=== PATIENT | male | born 1995 | race Caucasian/White ===

== ENCOUNTER 2021-11-19 09:10 | Emergency (ER) | payer MEDICAID, SELFPAY ==
[2021-11-19 09:25] VITALS: PULSE 95; RESP 16; O2SAT 97; BMI 34.8
--- NOTE | 2021-11-19 09:29 | ED_ITS ---
HPI - Back Pain/Injury General: Chief Complaint: Back Pain/Injury Stated Complaint: back pain Time Seen by Provider: 11/19/21 09:26 Source: patient Mode of arrival: ambulatory Limitations: no limitations History of Present Illness: 26-year-old male presents to the ER today for low back pain x5 days. Patient denies any known injury. He reports the pain is mostly in the middle of his low back. He reports worse with lying down. Denies any prior history of back injuries. Denies any loss of bowel or bladder control. Patient reports has been taking Tylenol and Motrin at home with minimal relief. Review of Systems General: Reports: 10 or more systems reviewed and unremarkable except in HPI and below Physical Exam Const: COMMON NORMALS: no acute distress, average body habitus, patient oriented x3, no limitations, healthy appearing, alert and well nourished Resp: COMMON NORMALS: normal respiratory effort EFFORT & INSPECTION: Yes a ble to speak in complete sentences Cardio: COMMON NORMALS: regular rate and regular rhythm RATE: regular rate RHYTHM: regular rhythm Back/Pelvis: COMMON NORMALS: thoracic and lumbar spine normal to inspection and thoraco-lumbar ROM normal OTHER: Patient has very minimal tenderness along the vertebral spine of the low back. There is mild paraspinal muscle tenderness otherwise unremarkable exam. Patient ambulates without difficulty. Patient moving around the bed without noted pain. Extremity: COMMON NORMALS: normal to inspection and full ROM Neuro: COMMON NORMALS: patient oriented x3 SENSORIUM/ORIENTATION: Yes alert Psych: COMMON NORMALS: mental status grossly normal, Normal thought process present and cooperative THOUGHT PROCESS: Normal thought process present Skin: COMMON NORMALS: no rashes or lesions noted and no wounds GENERAL SKIN EXAM: no rashes or lesions noted Course ED course: 26-year-old male presents to the ER today for 4 to 5 days of low back pain. Patient reports he has never had a back injury before. Denies doing anything last week that might of caused this. Patient reports pains in the middle of his low back and does not radiate anywhere else. Denies any loss of bowel or bladder control. Patient's been taking Tylenol and Motrin with minimal relief. We will do an exam today. I do not feel patient needs imaging given he had no known injury. Vital Signs: Vital signs: Vital Signs Pulse Rate 95 11/19/21 09:25 Respiratory Rate 16 11/19/21 09:25 Pulse Oximetry 97 11/19/21 09:25 Oxygen Delivery Me thod 11/19/21 09:25 MDM - Back Pain/Injury Medical Decision Making 26-year-old male presents to the ER today for 4 to 5 days of low back pain. Patient reports he has never had a back injury before. Denies doing anything last week that might of caused this. Patient reports pains in the middle of his low back and does not radiate anywhere else. Denies any loss of bowel or bladder control. Patient's been taking Tylenol and Motrin with minimal relief. We will do an exam today. I do not feel patient needs imaging given he had no known injury. Likely a low back strain based on history and physical exam. We will treat conservatively at this time. We will do Robaxin as a muscle relaxer and continue an anti-inflammatory. Patient given naproxen. Discussed with patient not to take ibuprofen at home. He can take Tylenol while at home if needed. Recommended warm, moist heat. Recommended topical muscle rub but do not use with heat. Stretching recommended. Follow-up in 7 to 10 days with a PCP if no improvement. Patient verbalized understanding and was in agreement with the treatment plan. Critical Care Time Critical Care Time: Critical Care Time: No Discharge Plan Discharge Patient Disposition: Home Clinical Impression: Low back strain Qualifiers: Encounter type: initial encounter Qualified Code(s): S39.012A - Strain of muscle, fascia and tendon of lower back, initial encounter Condition: Stable Prescriptions: New methocarbamol 750 mg tablet 750 mg PO Q8H Qty: 21 0RF naproxen 500 mg tablet 250 mg PO Q12H PRN (Reason: pain) Qty: 20 0RF Discharge Orders: Discharge ED (Routine); Ordered 11/19/21 Ordered By: Jessenia Moreno Discharge Diet: Usual diet Discharge Activity: Increase activity as tolerated Patient Instructions: Opioid Safety Activity Restrictions/Additional Instructions: Take naproxen and methocarbamol as prescribed. Okay to still take Tylenol at home as needed. Warm, moist heat recommended. Topical muscle rub recommended but do not use with heat. Stretching recommended. Follow-up with PCP in 10 to 14 days if no improvement. Coding Level of Care Code ED Door To Door Salesperson for Dereck Gordon
[2021-11-19 10:39] VITALS: PULSE 67; RESP 16; O2SAT 98
--- NOTE | 2021-11-20 13:52 | DCPLANNER ---
Addendum entered by Kate Lane 12/06/21 14:00: Patient had a follow up appointment scheduled with [facility] - patient did not attend appointment. Original Note: diversity manager had message to speak with patient about getting establish with primary care. diversity manager spoke with patient, he stated that he would like help in getting established with a primary care physician. diversity manager called [facility], spoke with Lyly, gave clinic patients information. A follow up appointment was scheduled for Sunday, December 05, 2021 at 1:[address] rPeston. diversity manager called patient with appointment information.
== END 2021-11-19 10:40 | disposition home or self-care (01) ==
PROVIDERS: Emergency Provider Physician Assistant
DX: S39.012A Strain of muscle, fascia and tendon of lower back, initial encounter (principal); X58.XXXA Exposure to other specified factors, initial encounter
CPT/HCPCS: 99283

== ENCOUNTER 2021-12-02 18:36 | Emergency (ER) | payer MEDICAID, SELFPAY ==
[2021-12-02 18:42] VITALS: BMI 41.5
--- NOTE | 2021-12-02 19:31 | XRR_ITS ---
PROCEDURE INFORMATION: Exam: XR Right Shoulder Exam date and time: 12/02/2021 8:44 PM Age: 26 years old Clinical indication: Pain; Shoulder; Right; Additional info: Pain in shoulder after lifting heavy object TECHNIQUE: Imaging protocol: Radiologic exam of the Right shoulder. Views: 2 or more views. COMPARISON: No relevant prior studies available. FINDINGS: Bones/joints: Normal. Soft tissues: Normal. XR/XR shoulder RT min 2V* [id number] IMPRESSION: No acute findings.
[2021-12-02 20:40] VITALS: BP 111/80; PULSE 93; RESP 18; TEMP 36.8; O2SAT 96
--- NOTE | 2021-12-02 20:56 | ED_ITS ---
HPI - Extremity Problem General: Chief complaint: Extremity Injury, Upper Stated complaint: RIGHT SHOULDER PAIN, N/V Time Seen by Provider: 12/02/21 19:32 History of Present Illness: Patient is a 26-year-old male comes to the ED with right shoulder pain. Injury occurred earlier today. Patient says a tree limb fell down and hit him on his right shoulder. He now has pain in right shoulder with abduction of right arm. He rates his pain currently a 4 out of 10. Denies any other injury or trauma. Associated symptoms: Deny chest pain, fever(s) or rash Review of Systems Const: Denies: fever(s), chills or fatigue Eyes: Denies: change in vision or eye discomfort ENMT: Denies: throat pain, odynophagia, nasal discharge or nasal congestion Card: Denies: chest pain, palpitations, edema, swelling of feet/ankles, dyspnea on exertion or orthopnea Resp: Denies: dyspnea, productive cough or non-productive cough GI: Denies: abdominal pain, nausea, vomiting, diarrhea, constipation or hematochezia : Denies: flank pain, difficulty urinating, dysuria or hematuria Musc: Reports: extremity pain (Right shoulder pain); Denies: neck pain, back pain or extremity swelling Skin/Breast: Denies: rash or new lesions Neuro: Denies: headache(s), numbness in extremities or weakness in extremities PFSH ED PFSH: Medical History No pertinent family history Surgical History No pertinent past surgical history Physical Exam Const: COMMON NORMALS: no acute distress, patient oriented x3, healthy appearing and alert GENERAL APPEARANCE: cooperative and comfortable HENMT: COMMON NORMALS: normocephalic HEAD & SCALP: normocephalic MOUTH: Normal oral and palatal mucosa present THROAT: posterior oropharynx normal and uvula midline Neck/C-Spine: COMMON NORMALS: supple GENERAL: Yes normal visual inspection Resp: COMMON NORMALS: normal respiratory effort, No retractions, No use of accessory muscles and clear to auscultation bilaterally AUSCULTATION: clear to auscultation bilaterally Cardio: COMMON NORMALS: regular rate, regular rhythm, S1 normal heart sound present, S2 normal heart sound present, No gallops present (Cardio), No clicks present (Cardio), No murmurs present (Cardio) and Peripheral pulses 2+ throughout RATE: regular rate RHYTHM: regular rhythm HEART SOUNDS: S1 normal heart sound present and S2 normal heart sound present PERIPHERAL PULSES: Peripheral pulses 2+ throughout GI: COMMON NORMALS: Normal to inspection, nondistended, normoactive bowel sounds present, Soft to palpation, non-tender and no masses PALPATION: Yes Soft to palpation : COMMON NORMALS: Yes no CVA tenderness BLADDER/KIDNEY EXAM: Yes no CVA tenderness Back/Pelvis: COMMON NORMALS: no CVA tenderness Extremity: COMMON NORMALS: normal to inspection NARRATIVE EXTREMITY EXAM: Right shoulder?tenderness to the anterior aspect of shoulder. No visible deformity ecchymosis or swelling seen. Superficial abrasion noted over right shoulder. Patient appears to have full range of motion. He was able to reposition his body on exam chair and use his right arm to help support his weight. Neurovascular tact distally. Neuro: COMMON NORMALS: patient oriented x3 SENSORIUM/ORIENTATION: Yes alert GAIT: Yes Normal gait present Skin: GENERAL SKIN EXAM: dry skin Course Vital Signs: Vital signs: Vital Signs Temperature 98.3 F 12/02/21 20:40 Pulse Rate 70 12/02/21 21:50 Respiratory Rate 18 12/02/21 21:50 Blood Pressure 135/61 12/02/21 21:50 Pulse Oximetry 98 12/02/21 21:50 Oxygen Delivery Me thod 12/02/21 20:40 MDM - Extremity (Nontraumatic) Medical Decision Making Patient is a 26-year-old male comes to the ED with right shoulder pain. Injury occurred earlier today. Patient says a tree limb fell down and hit him on his right shoulder. Vitals are stable. Patient appears in no acute distress or pain. Right shoulder?tenderness to the anterior aspect of shoulder. No visible deformity ecchymosis or swelling seen. Superficial abrasion noted over right shoulder. Patient appears to have full range of motion. He was able to reposition his body on exam chair and use his right arm to help support his weight. Neurovascular tact distally. X-ray of right shoulder showed no acute findings. Patient was given a dose of Toradol here in the ED and placed in a shoulder sling. He was told to use sling for the next 2 to 3 days to allow for healing. I have reminded him to remove right arm from sling multiple times throughout the next couple days and do some range of motion exercises to prevent frozen shoulder. Follow-up with PCP in a week for reevaluation. He was sent home with a prescription for ibuprofen 600 mg tablets for pain. Patient understood and agreed with plan. Lab Data Radiology Impressions Shoulder X-Ray 12/02/21 19:31 IMPRESSION: No acute findings. Discharge Plan Discharge Patient Disposition: Home Clinical Impression: Right shoulder pain Qualifiers: Chronicity: acute Qualified Code(s): M25.511 - Pain in right shoulder Condition: Stable Prescriptions: New ibuprofen 600 mg tablet 600 mg PO Q8H PRN (Reason: pain) Qty: 20 0RF No Action methocarbamol 750 mg tablet 750 mg PO Q8H Qty: 21 0RF naproxen 500 mg tablet 250 mg PO Q12H PRN (Reason: pain) Qty: 20 0RF Discharge Orders: Discharge ED (Routine); Ordered 12/02/21 Ordered By: Luis Anders Discharge Diet: Regular Discharge Activity: Increase activity as tolerated and Limit activity as instructed Activity Restrictions/Additional Instructions: Follow-up with medical provider as directed. Wear shoulder sling for the next 2 days but remember to remove arm from sling and do some range of motion exercises multiple times a day. Take medications as prescribed. Return to the ER or your medical provider if condition worsens. Please read and understand discharge instructions. Thank you for choosing [facility] for your healthcare needs today. Please realize this is an emergency room and that we are providing you with a medical screening exam and this may not be complete and all inclusive of all the testing and or work up that you may need to determine your ailment or severity of your illness. It is very important that you follow up as instructed or that you return to the Emergency Department should you have concerns or if your condition changes or worsens in any way. Coding Level of Care Code ED Public Policy Associate for Dereck Gordon Exam Comprehensive
[2021-12-02] MEDS: ketorolac 60 mg/2 mL INJ IM (21:17)
[2021-12-02 21:50] VITALS: BP 135/61; PULSE 70; RESP 18; O2SAT 98
== END 2021-12-02 21:50 | disposition home or self-care (01) ==
PROVIDERS: Emergency Provider Physician Assistant
DX: S40.211A Abrasion of right shoulder, initial encounter (principal); W22.8XXA Striking against or struck by other objects, initial encounter
CPT/HCPCS: 73030; 96372; 99284; J1885

== ENCOUNTER 2021-12-16 10:51 | Emergency (ER) | payer MEDICAID, SELFPAY ==
[2021-12-16 11:04] VITALS: BP 144/89; PULSE 83; RESP 18; TEMP 36.7; O2SAT 98; BMI 40.3
--- NOTE | 2021-12-16 11:09 | XRR_ITS ---
PROCEDURE INFORMATION: Exam: XR Right Knee Exam date and time: 12/16/2021 11:26 AM Age: 26 years old Clinical indication: Injury or trauma; Fall; Blunt trauma; Knee; Right; Additional info: Pain TECHNIQUE: Imaging protocol: Radiologic exam of the Right knee. Views: 3 views. COMPARISON: No relevant prior studies available. FINDINGS: Bones/joints: No knee joint effusion. No chondrocalcinosis is seen. No fracture, dislocation or subluxation. Soft tissues: The extensor mechanism is overall intact. No significant soft tissue swelling is appreciated. XR/XR knee RT 3V* [id number] IMPRESSION: No acute fracture is seen.
--- NOTE | 2021-12-16 11:13 | ED_ITS ---
HPI - General Adult General: Chief complaint: Extremity Injury, Lower Stated complaint: right knee pain Time Seen by Provider: 12/16/21 11:11 History of Present Illness: Patient is a 26-year-old male who presents the emergency room with complaints of right knee pain. Patient tells me that he was at work when a piece of wood fell on to his right knee 1 week and half ago. Patient then felt a pop sensation in the right knee. Since then, patient has noticed right-sided knee pain and right-sided knee and knocking. Patient denies any significant swelling. Patient still able to bear weight. Denies any other injuries. Since the incident, patient reports intermittent knee pain. Patient would like to get this checked out today. No other focal complaints at this time Onset:1 week and a half Duration: 9 days Location:home Severity: moderate Associated symptoms: Deny chest pain, dyspnea, nausea, rash, palpitations or vomiting Review of Systems Const: Denies: fever(s) or chills Eyes: Denies: change in vision ENMT: Denies: mouth pain Card: Denies: chest pain or palpitations Resp: Denies: dyspnea or non-productive cough GI: Denies: abdominal pain, nausea, vomiting or diarrhea : Denies: dysuria Musc: Reports: extremity pain (+R knee pain and locking) Skin/Breast: Denies: rash or new lesions Neuro: Denies: weakness in extremities Psych: Reports: other (Normal mood) Arnie/Lymph: Denies: easy bruising PFS ED PFSH: Medical History No pertinent family history Surgical History No pertinent past surgical history Social History (Updated 12/16/21 @ 12:18 by Ronda Barry MD) Smoking and tobacco status: current every day smoker Alcohol intake: never Substance/Drug Use: never Physical Exam Const: COMMON NORMALS: alert HENMT: COMMON NORMALS: atraumatic HEAD & SCALP: atraumatic MOUTH: moist mucous membranes not abnormal Eye: COMMON NORMALS: EOMs intact bilaterally and conjunctivae normal CONJUNCTIVA: Yes conjunctivae normal Neck/C-Spine: COMMON NORMALS: full ROM and supple Resp: COMMON NORMALS: normal respiratory effort and clear to auscultation bilaterally AUSCULTATION: clear to auscultation bilaterally Cardio: COMMON NORMALS: regular rate RATE: regular rate GI: COMMON NORMALS: Soft to palpation and non-tender PALPATION: Yes Soft to palpation Extremity: NARRATIVE EXTREMITY EXAM: + Range of motion of the right knee limited past 75 degrees. Patient cannot fully extend the knee. Neuro: SENSORIUM/ORIENTATION: Yes alert MOTOR EXAM: No Abnormal motor strength present and Other motor observations present (no focal motor deficits) Psych: COMMON NORMALS: speech normal SPEECH: Yes normal speech MOOD & AFFECT: Yes euthymic mood Course Vital Signs: Vital signs: Vital Signs Temperature 98.0 F 12/16/21 11:04 Pulse Rate 76 12/16/21 12:36 Respiratory Rate 17 12/16/21 12:36 Blood Pressure 144/89 12/16/21 11:04 Pulse Oximetry 97 12/16/21 12:36 Oxygen Delivery Me thod 12/16/21 11:04 MDM - General Adult Medical Decision Making 26-year-old male presenting to the emergency with complaints of 9 days of right knee pain. Patient has decreased range of motion of the right knee. The patella does not appear to be displaced. Neurovascular exam is intact in the right knee. X-ray is negative for any acute findings. Patient continues to be able to bear weight. I have given patient follow up with our pillowcase cleaner to be seen by our outpatient Orthopedics. Patient aware of a call from our pillowcase cleaner to schedule for appointment(s) and verbalizes understanding of the importance of following up. Rx: Tylenol and menthol PRN pain Disposition: Discharge. Patient counseled regarding diagnostic impression, treatment plan. Patient given ED strict return precautions to return for continuation, worsening, or development of new symptoms. Instructed to f/u w/ PCP and Orthopedics regarding symptoms today. Patient verbalized understanding. Lab Data Radiology Impressions Knee X-Ray 12/16/21 11:09 IMPRESSION: No acute fracture is seen. Imaging Data Other Imaging: Radiologist's impression: [address] [address] XRay Report Signed Patient: Isra Medina Unit #: [id number] : [id number] Age/Sex: 26 / M ADM Date: 12/16/21 Loc: ER Room/Bed: Attending Dr: Ordering Provider/Ordering MD: Ronda Barry MD Date of Service: 12/16/21 Procedure(s): XR knee RT 3V* [id number] Accession Number(s): [id number] Report Number: [id number] PROCEDURE INFORMATION: Exam: XR Right Knee Exam date and time: 12/16/2021 11:26 AM Age: 26 years old Clinical indication: Injury or trauma; Fall; Blunt trauma; Knee; Right; Additional info: Pain TECHNIQUE: Imaging protocol: Radiologic exam of the Right knee. Views: 3 views. COMPARISON: No relevant prior studies available. FINDINGS: Bones/joints: No knee joint effusion. No chondrocalcinosis is seen. No fracture, dislocation or subluxation. Soft tissues: The extensor mechanism is overall intact. No significant soft tissue swelling is appreciated. XR/XR knee RT 3V* [id number] IMPRESSION: No acute fracture is seen. ? Dictated By: Jaylen Galloway Signed By: Jaylen Galloway Signed Date/Time: 12/16/21 1304 DD/ 1126 Discharge Plan Discharge Patient Disposition: Home Clinical Impression: Acute knee pain Condition: Stable Prescriptions: New acetaminophen 500 mg tablet 500 mg PO Q6H PRN (Reason: pain) 5 Days Qty: 20 0RF Biofreeze (menthol) 5 % gel 1 ea topical BID PRN (Reason: pain) 10 Days Qty: 1 0RF No Action methocarbamol 750 mg tablet 750 mg PO Q8H Qty: 21 0RF naproxen 500 mg tablet 250 mg PO Q12H PRN (Reason: pain) Qty: 20 0RF ibuprofen 600 mg tablet 600 mg PO Q8H PRN (Reason: pain) Qty: 20 0RF Discharge Orders: Discharge ED (Routine); Ordered 12/16/21 Ordered By: Ronda Barry Discharge Diet: Advance as tolerated Discharge Activity: Increase activity as tolerated Patient Instructions: Pain Management Activity Restrictions/Additional Instructions: Come back if you have any new or concerning issues. Our pillowcase cleaner will have you follow-up with Orthopedics in the next few days for further assessment of your knee pain. You would be expected to have a phone call with our pillowcase cleaner who will put you on the schedule. You can expect a call from us in the next 2-3 days. If you don't hear from us, call us back in the emergency room at [phone]. Coding Level of Care Code ED Outside Energy Sales Representatives for Dereck Gordon Exam Comprehensive
[2021-12-16 12:36] VITALS: PULSE 76; RESP 17; O2SAT 97
== END 2021-12-16 12:37 | disposition home or self-care (01) ==
PROVIDERS: Emergency Provider Emergency Medicine
DX: M25.561 Pain in right knee (principal); F17.210 Nicotine dependence, cigarettes, uncomplicated
CPT/HCPCS: 73562; 99283

== ENCOUNTER 2021-12-17 18:30 | Emergency (ER) | payer MEDICAID, SELFPAY ==
[2021-12-17 18:32] VITALS: BP 146/94; PULSE 93; RESP 15; TEMP 36.8; O2SAT 100; BMI 39.7
--- NOTE | 2021-12-17 18:48 | W.ED.NAVMDI ---
HPI - Nausea/Vomiting/Diarrhea General: Chief complaint: Nausea/Vomiting/Diarrhea Stated complaint: N/V Time Seen by Provider: 12/17/21 18:34 Source: patient History of Present Illness: 26-year-old male with developmental delay. He presents with abdominal pain and vomiting he says. He says is been going on for the last 5 days or so. He says he has vomited 5 times today. He gives no clinical indication that he has vomited 5 times today. He does not appear in pain. He smiles on interview. He points to his right lower quadrant when he reports the location of his pain. He says he last took Tylenol for his pain. He also notes that he's been coughing and sneezing he denies significant fever. MD elicited complaint: nausea, vomiting, diarrhea and abdominal pain Pertinent past history: other Onset (ago): day(s) (5) Description of diarrhea: watery Associated nausea: Yes Associated abdominal pain: Yes Location of pain: RLQ Pain consistency: constant Severity: mild Quality: aching Exacerbating factors: none Relieving factors: none Associated symtoms: Reports cough and nausea; Denies altered mental status, chest pain, diaphoresis, decreased urine output, fevers/chills, headache(s) or short of breath Treatment prior to arrival: analgesics Review of Systems Const: Denies: fever(s) or diaphoresis ENMT: Denies: throat pain Card: Denies: chest pain Resp: Reports: productive cough; Denies: dyspnea GI: Reports: abdominal pain, nausea, vomiting and diarrhea; Denies: hematochezia Musc: Reports: back pain (Chronic) Neuro: Denies: headache(s) [facility] ED PFSH: Medical History No pertinent family history Surgical History No pertinent past surgical history Social History Smoking and tobacco status: current every day smoker Alcohol intake: never Physical Exam Const: EXAM LIMITATIONS: no altered mental status GENERAL APPEARANCE: cooperative; not ill appearing and not frail appearing ORIENTATION/CONSCIOUSNESS: Yes awake HENMT: COMMON NORMALS: normocephalic, atraumatic and Normal external nose present HEAD & SCALP: normocephalic and atraumatic FACE & SINUS: normal facial exam NOSE: Normal external nose present and Normal nares present Eye: COMMON NORMALS: Equal, round and reactive pupils present, EOMs intact bilaterally and no scleral icterus PUPIL: Yes Equal, round and reactive pupils present Neck/C-Spine: COMMON NORMALS: full ROM GENERAL: Yes trachea midline Chest: CHEST: Yes Symmetrical chest wall rise Resp: COMMON NORMALS: normal respiratory effort, No use of accessory muscles and clear to auscultation bilaterally AUSCULTATION: clear to auscultation bilaterally Cardio: COMMON NORMALS: regular rate and regular rhythm RATE: regular rate RHYTHM: regular rhythm GI: COMMON NORMALS: Normal to inspection, nondistended, normoactive bowel sounds present and Soft to palpation PALPATION: Yes Soft to palpation and Yes Tenderness to palpation present (GI) (By report. No objective indication) Details: RLQ : COMMON NORMALS: Yes no CVA tenderness BLADDER/KIDNEY EXAM: Yes no CVA tenderness Back/Pelvis: COMMON NORMALS: no CVA tenderness Extremity: COMMON NORMALS: normal to inspection Neuro: DL COMA SCALE: document GCS findings Dl coma scale eye opening: Spontaneous [place] coma scale verbal response: Orientated [place] coma scale motor response: Obey commands [place] coma scale total score: 15 Psych: COMMON NORMALS: cooperative Skin: COMMON NORMALS: no rashes or lesions noted GENERAL SKIN EXAM: no rashes or lesions noted Course Vital Signs: Vital signs: Vital Signs Temperature 98.3 F 12/17/21 18:32 Pulse Rate 91 12/17/21 20:59 Respiratory Rate 18 12/17/21 20:59 Blood Pressure 116/78 12/17/21 20:59 Pulse Oximetry 98 12/17/21 20:59 Oxygen Delivery Me thod 12/17/21 19:54 MDM - Nausea/Vomiting/Diarrhea Medical Decision Making 26-year-old male with a history of belly pain, vomiting, and diarrhea. He is also had some upper respiratory symptoms. His white blood cell count is 6. His BMP is normal. His CRP is 9. His COVID-19 antigen test is negative. He has not vomited here. He is afebrile. He gives no indication of being overly tender or ill on exam. His other vitals are normal. He will be allowed discharged with symptomatic treatment. Lab Data : 12/17/21 18:40 12/17/21 18:40 Laboratory Results WBC 6.0 10^3/uL (4.0-10.0) 12/17/21 18:40 RBC 4.59 10^6/uL (4.1-5.3) 12/17/21 18:40 Hgb 14.0 g/dL (11.7-16.6) 12/17/21 18:40 Hct 41.9 % (42.0-52.0) L 12/17/21 18:40 MCV 91.3 fl (80-94) 12/17/21 18:40 MCH 30.5 pg (28.0-34.0) 12/17/21 18:40 MCHC 33.4 g/dL (30.0-36.0) 12/17/21 18:40 RDW 13.2 % (12.1-15.1) 12/17/21 18:40 Plt Count 218 10^3/cmm (130-400) 12/17/21 18:40 MPV 11.2 fL (7.4-10.4) H 12/17/21 18:40 Neut % (Auto) 53.3 % 12/17/21 18:40 Lymph % (Auto) 27.8 % 12/17/21 18:40 [place] % (Auto) 16.2 % 12/17/21 18:40 Eos % (Auto) 2.0 % 12/17/21 18:40 Baso % (Auto) 0.5 % 12/17/21 18:40 Neut # (Auto) 3.22 10^3/uL (1.8-7.7) 12/17/21 18:40 Lymph # (Auto) 1.7 10^3/uL (0.8-4.8) 12/17/21 18:40 [place] # (Auto) 1.0 10^3/uL (0.2-0.9) H 12/17/21 18:40 Eos # (Auto) 0.1 10^3/uL (0.0-0.8) 12/17/21 18:40 Baso # (Auto) 0.0 10^3/uL (0.0-0.1) 12/17/21 18:40 Nucleated RBC % (auto) 0 % 12/17/21 18:40 Nucleated RBCs # 0.0 /100WBC 12/17/21 18:40 Sodium 137 mmol/L (136-145) 12/17/21 18:40 Potassium 4.3 mmol/L (3.5-5.1) 12/17/21 18:40 Chloride 98 mmol/L (98-107) 12/17/21 18:40 Carbon Dioxide 28 mmol/L (22-29) 12/17/21 18:40 Anion Gap 15.3 (5-19) 12/17/21 18:40 BUN 11 mg/dL (6-20) 12/17/21 18:40 Creatinine 0.8 mg/dL (0.7-1.2) 12/17/21 18:40 GFR Calculation 116.0 mL/min (90-130) 12/17/21 18:40 Glucose 98 mg/dL (65-115) 12/17/21 18:40 Calculated Osmolality 283 mOsm/kg (285-295) L 12/17/21 18:40 Calcium 9.4 mg/dL (8.5-10.5) 12/17/21 18:40 Total Bilirubin 0.3 mg/dL (0.15-1.2) 12/17/21 18:40 AST 23 U/L (0-40) 12/17/21 18:40 ALT 35 U/L (0-41) 12/17/21 18:40 Alkaline Phosphatase 120 U/L (40-130) 12/17/21 18:40 C-Reactive Protein 9.0 mg/L (0.0-4.9) H 12/17/21 18:40 Total Protein 7.2 g/dL (6.6-8.7) 12/17/21 18:40 Albumin 4.2 g/dL (3.5-5.2) 12/17/21 18:40 Globulin 3.0 g/dL (1.3-4.6) 12/17/21 18:40 Lipase 38 U/L (13-60) 12/17/21 18:40 Urine Color Yellow (Yellow) 12/17/21 19:07 Urine Appearance Clear (CLEAR) 12/17/21 19:07 Urine pH 5 (5-7) 12/17/21 19:07 Ur Specific [place] 1.020 (1.005-1.030) 12/17/21 19:07 Urine Protein Neg (Negative) 12/17/21 19:07 Urine Glucose (UA) Norm (Normal) 12/17/21 19:07 Urine Ketones Negative (Negative) 12/17/21 19:07 Urine Blood Neg (Negative) 12/17/21 19:07 Urine Nitrate Negative (Negative) 12/17/21 19:07 Urine Bilirubin Neg (Negative) 12/17/21 19:07 Urine Urobilinogen Neg mg/dL (Negative) 12/17/21 19:07 Ur Leukocyte Esterase Negative (Negative) 12/17/21 19:07 SARS-CoV-2 Ag (Rapid) negative (Negative) 12/17/21 19:50 Discharge Plan Discharge Patient Disposition: Home Clinical Impression: Gastroenteritis Condition: Stable Prescriptions: New ondansetron 4 mg film 4 mg PO DAILY PRN (Reason: nausea and vomiting) Qty: 10 0RF No Action methocarbamol 750 mg tablet 750 mg PO Q8H Qty: 21 0RF naproxen 500 mg tablet 250 mg PO Q12H PRN (Reason: pain) Qty: 20 0RF ibuprofen 600 mg tablet 600 mg PO Q8H PRN (Reason: pain) Qty: 20 0RF acetaminophen 500 mg tablet 500 mg PO Q6H PRN (Reason: pain) 5 Days Qty: 20 0RF Biofreeze (menthol) 5 % gel 1 ea topical BID PRN (Reason: pain) 10 Days Qty: 1 0RF Discharge Orders: Discharge ED (Routine); Ordered 12/17/21 Ordered By: Keny Wharton Patient Instructions: Gastroenteritis (ED) Activity Restrictions/Additional Instructions: Return for persistent fever greater than 100, continuing to vomit liquids or medications despite treatment, worsening pain despite treatment other concerning symptoms. Follow a liquid diet for the next 24 hours, and take the nausea medication you were prescribed every 6 hours while awake scheduled for the next 24 hours, then as needed. You should consider stopping the naproxen, as it can irritate your stomach Coding Level of Care Code ED Fish Processing Supervisor for Dereck Fwd Exam Comprehensive
[2021-12-17 19:00] LABS: Basophils % 0.5 %; Eosinophils # 0.1 10^3/uL (0.0-0.8); Hematocrit 41.9 % (42.0-52.0); Lymphocytes # 1.7 10^3/uL (0.8-4.8); Lymphocytes % 27.8 %; Mean Corpuscular HGB Conc 33.4 g/dL (30.0-36.0); Mean Corpuscular Hemoglobin 30.5 pg (28.0-34.0); Mean Corpuscular Volume 91.3 fl (80-94); Mean Platelet Volume 11.2 fL (7.4-10.4); Monocytes % 16.2 %; Neutrophils # 3.22 10^3/uL (1.8-7.7); Neutrophils % 53.3 %; Nucleated Red Blood Cells % 0 %; Platelet Count 218 10^3/cmm (130-400); Red Blood Count 4.59 10^6/uL (4.1-5.3); Red Cell Distribution Width 13.2 % (12.1-15.1)
[2021-12-17] MEDS: ondansetron 2 mg/ML SDV 2 mL 4 MG IVP (19:02)
[2021-12-17] MEDS: sodium chloride 0.9% 1,000 ML 999 ML IV (19:02)
[2021-12-17] MEDS: ketorolac 30 mg/mL INJ 15 MG IVP (19:02)
[2021-12-17 19:11] VITALS: BP 146/94; PULSE 89; RESP 19; O2SAT 99
[2021-12-17 19:18] LABS: Add Urine Microscopic? NO; Charge for UA Resulting for Rev
[2021-12-17 19:27] LABS: Alanine Aminotransferase 35 U/L (0-41); Albumin Level 4.2 g/dL (3.5-5.2); Alkaline Phosphatase 120 U/L (40-130); Anion Gap 15.3 (5-19); Aspartate Amino Transferase 23 U/L (0-40); Blood Urea Nitrogen 11 mg/dL (6-20); Calcium 9.4 mg/dL (8.5-10.5); Carbon Dioxide 28 mmol/L (22-29); Chloride 98 mmol/L (98-107); Glucose 98 mg/dL (65-115); Lipase 38 U/L (13-60); Osmolality Calculated 283 mOsm/kg (285-295); Potassium 4.3 mmol/L (3.5-5.1); Sodium 137 mmol/L (136-145); Total Bilirubin 0.3 mg/dL (0.15-1.2); Total Protein 7.2 g/dL (6.6-8.7)
[2021-12-17 19:29] LABS: Bilirubin Urine Neg (Negative); Blood Urine Neg (Negative); Glucose Urine UA Norm (Normal); Ketones Urine Negative (Negative); Leukocyte Esterase Urine Negative (Negative); Nitrate Urine Negative (Negative); Protein Urine Neg (Negative); Urine Appearance Clear (CLEAR); Urine Color Yellow (Yellow); Urobilinogen Urine Neg (Negative); pH Urine 5 (5-7)
[2021-12-17 19:54] VITALS: BP 118/80; PULSE 91; RESP 18; O2SAT 98
[2021-12-17 20:13] LABS: SARS Covid-2 Antigen negative (Negative)
[2021-12-17 20:59] VITALS: BP 116/78; PULSE 91; RESP 18; O2SAT 98
== END 2021-12-17 21:02 | disposition home or self-care (01) ==
PROVIDERS: Emergency Provider Emergency Medicine
DX: K52.9 Noninfective gastroenteritis and colitis, unspecified (principal)
CPT/HCPCS: 80053; 81003; 83690; 85025; 86140; 87426; 96361; 96374; 96375; 99284; J1885; J2405; J7030

== ENCOUNTER 2021-12-23 19:47 | Emergency (ER) | payer MEDICAID, SELFPAY ==
--- NOTE | 2021-12-23 19:50 | XRR_ITS ---
PROCEDURE INFORMATION: Exam: XR Left Knee Exam date and time: 12/23/2021 7:56 PM Age: 26 years old Clinical indication: Injury or trauma; Other: Dropped tree on knee 5x days ago; Blunt trauma; Left TECHNIQUE: Imaging protocol: Radiologic exam of the Left knee. Views: 3 views. COMPARISON: No relevant prior studies available. FINDINGS: Bones/joints: Normal. Soft tissues: Normal. XR/XR knee LT 3V* [id number] IMPRESSION: No acute findings.
[2021-12-23 19:52] VITALS: BP 147/82; PULSE 108; RESP 18; TEMP 36.6; O2SAT 95
--- NOTE | 2021-12-23 20:08 | W.ED.EXTPRO ---
HPI - Extremity Problem General: Chief complaint: Extremity Injury, Lower Stated complaint: left knee pain Time Seen by Provider: 12/23/21 19:51 Source: patient Mode of arrival: ambulatory Limitations: no limitations History of Present Illness: 26-year-old male who states that he had a tree limb hit him in the left knee 5 days ago has had some slight pain since then. He denies any worsening improving factors. He is able to ambulate he is resting comfortably currently. Associated symptoms: Deny chest pain, fever(s) or rash Review of Systems Const: Denies: fever(s), chills, body aches or change in appetite Eyes: Denies: blurry vision or eye discomfort ENMT: Denies: throat pain or dental pain Card: Denies: chest pain Resp: Denies: dyspnea GI: Denies: abdominal pain, nausea, vomiting or diarrhea : Denies: dysuria Musc: Reports: extremity pain Skin/Breast: Denies: rash Neuro: Denies: headache(s) Psych: Denies: depression Arnie/Lymph: Denies: easy bruising All/Imm: Denies: urticaria PFSH ED PFSH: Medical History No pertinent family history Surgical History No pertinent past surgical history Social History Smoking and tobacco status: current every day smoker Alcohol intake: never Physical Exam Const: COMMON NORMALS: no acute distress and alert HENMT: COMMON NORMALS: normocephalic and atraumatic HEAD & SCALP: normocephalic and atraumatic Eye: COMMON NORMALS: conjunctivae normal CONJUNCTIVA: Yes conjunctivae normal Neck/C-Spine: COMMON NORMALS: full ROM Chest: COMMONS NORMALS: normal inspection of the chest Resp: COMMON NORMALS: normal respiratory effort Cardio: COMMON NORMALS: regular rhythm RHYTHM: regular rhythm GI: INSPECTION: Yes normal to inspection Extremity: COMMON NORMALS: normal to inspection NARRATIVE EXTREMITY EXAM: Slight tenderness to left knee no obvious deformity or bruising Neuro: SENSORIUM/ORIENTATION: Yes alert Psych: COMMON NORMALS: mental status grossly normal Skin: COMMON NORMALS: no rashes or lesions noted GENERAL SKIN EXAM: no rashes or lesions noted Course Vital Signs: Vital signs: Vital Signs Temperature 97.8 F 12/23/21 19:52 Pulse Rate 108 H 12/23/21 19:52 Respiratory Rate 18 12/23/21 19:52 Blood Pressure 147/82 12/23/21 19:52 Pulse Oximetry 95 12/23/21 19:52 Oxygen Delivery Me thod 12/23/21 19:52 MDM - Extremity (Nontraumatic) Medical Decision Making Patient presents with left knee pain likely contusion patient's x-ray here is negative he is able to ambulate he is stable for discharge. Discharge Plan Discharge Patient Disposition: Home Clinical Impression: Knee pain, left Qualifiers: Chronicity: acute Qualified Code(s): M25.562 - Pain in left knee Condition: Stable Prescriptions: No Action methocarbamol 750 mg tablet 750 mg PO Q8H Qty: 21 0RF naproxen 500 mg tablet 250 mg PO Q12H PRN (Reason: pain) Qty: 20 0RF ibuprofen 600 mg tablet 600 mg PO Q8H PRN (Reason: pain) Qty: 20 0RF Biofreeze (menthol) 5 % gel 1 ea topical BID PRN (Reason: pain) 10 Days Qty: 1 0RF ondansetron 4 mg film 4 mg PO DAILY PRN (Reason: nausea and vomiting) Qty: 10 0RF Discharge Orders: Discharge ED (Routine); Ordered 12/23/21 Ordered By: Mil Ford Discharge Diet: Advance as tolerated Discharge Activity: Resume usual activity Patient Instructions: Knee Pain (ED) Coding Level of Care Code ED Control Integration Engineer for Dereck Gordon
[2021-12-23] MEDS: naproxen 500 mg Tablet PO (20:13)
[2021-12-23 20:16] VITALS: BP 147/82; PULSE 108; RESP 18; TEMP 36.6; O2SAT 95
== END 2021-12-23 20:18 | disposition home or self-care (01) ==
PROVIDERS: Emergency Provider Emergency Medicine
DX: M25.562 Pain in left knee (principal); F17.210 Nicotine dependence, cigarettes, uncomplicated
CPT/HCPCS: 73562; 99283

== ENCOUNTER 2022-01-02 01:46 | Emergency (ER) | payer MEDICAID, SELFPAY ==
[2022-01-02 01:48] VITALS: BP 154/109; PULSE 91; RESP 18; TEMP 36.6; O2SAT 98; BMI 37.3
--- NOTE | 2022-01-02 01:54 | W.ED.EXTPRO ---
HPI - Extremity Problem General: Chief complaint: Extremity Injury, Lower Stated complaint: R Foot Pain Time Seen by Provider: 01/02/22 01:50 History of Present Illness: 26-year-old male patient comes in today with complaints of right foot pain. Patient appears nontoxic. Patient reports twisting foot. Patient reports that it seems to be more swollen and painful. Patient was seen yesterday for an old knee injury. EMS brought patient and they state that he is homeless at this time. Associated symptoms: Deny chest pain Review of Systems General: Reports: 10 or more systems reviewed and unremarkable except in HPI and below Card: Denies: chest pain Resp: Denies: dyspnea Musc: Reports: extremity pain PFSH ED PFSH: Medical History No pertinent family history Surgical History No pertinent past surgical history Social History Smoking and tobacco status: current every day smoker Alcohol intake: never Physical Exam Const: COMMON NORMALS: alert HENMT: COMMON NORMALS: normocephalic HEAD & SCALP: normocephalic Neck/C-Spine: COMMON NORMALS: full ROM Resp: COMMON NORMALS: normal respiratory effort Cardio: COMMON NORMALS: regular rate RATE: regular rate Extremity: LEFT LOWER EXTREMITY: Yes foot & digits (Good pulses, minimal to no swelling) Left foot and digits: Yes inspection, Yes palpation and Yes ROM Neuro: SENSORIUM/ORIENTATION: Yes alert Skin: COMMON NORMALS: turgor normal GENERAL SKIN EXAM: turgor normal Course Vital Signs: Vital signs: Vital Signs Temperature 97.9 F 01/02/22 01:48 Pulse Rate 91 01/02/22 01:48 Respiratory Rate 18 01/02/22 01:48 Blood Pressure 154/109 01/02/22 01:48 Pulse Oximetry 98 01/02/22 01:48 Oxygen Delivery Me thod 01/02/22 01:48 MDM - Extremity (Nontraumatic) Medical Decision Making 26-year-old male patient comes in today with complaints of right foot pain. On exam patient has minimal to no swelling. Pulses are intact in foot. No obvious contusion or deformity is noted. Differential diagnosis includes sprain, stress fracture, malingering. X-ray noted no significant abnormality except for pes planus. Patient requesting elastic bandage was placed on. Recommended treatment like a foot strain and better arch support in the shoe. Patient was recommended to follow-up as needed. Discharge Plan Discharge Patient Disposition: Home Clinical Impression: Strain of foot, right Qualifiers: Encounter type: initial encounter Qualified Code(s): S96.911A - Strain of unspecified muscle and tendon at ankle and foot level, right foot, initial encounter Condition: Stable Prescriptions: No Action methocarbamol 750 mg tablet 750 mg PO Q8H Qty: 21 0RF naproxen 500 mg tablet 250 mg PO Q12H PRN (Reason: pain) Qty: 20 0RF ibuprofen 600 mg tablet 600 mg PO Q8H PRN (Reason: pain) Qty: 20 0RF ondansetron 4 mg film 4 mg PO DAILY PRN (Reason: nausea and vomiting) Qty: 10 0RF Discharge Orders: Discharge ED (Routine); Ordered 01/02/22 Ordered By: Jaylen Lopez Discharge Activity: Resume usual activity Activity Restrictions/Additional Instructions: Activity as tolerated. Use acetaminophen or ibuprofen for pain. Follow-up as needed. Coding Level of Care Code ED Service Manager for Cathyg Fwd Exam Detailed
--- NOTE | 2022-01-02 01:57 | XRR_ITS ---
PROCEDURE INFORMATION: Exam: XR Right Foot Exam date and time: 01/02/2022 2:00 AM Age: 26 years old Clinical indication: Right; Patient HX: C/O pain with swelling to RT foot. Patient diagnosed with RT knee sprain five days ago. ; Additional info: Pain, reports twisting TECHNIQUE: Imaging protocol: Radiologic exam of the Right foot. Views: 3 or more views. COMPARISON: No relevant prior studies available. FINDINGS: Bones/joints: There is no acute fracture or dislocation. If symptoms persist, follow-up imaging in several days may be useful to exclude an occult fracture. No other significant acute bone or joint abnormality. Soft tissues: No significant acute finding. XR/XR foot RT min 3V* [id number] IMPRESSION: No acute fracture or dislocation.
[2022-01-02] MEDS: acetaminophen 500 mg Tablet PO (02:07)
[2022-01-02] MEDS: ibuprofen 200 mg Tablet 400 MG PO (02:07)
[2022-01-02 02:36] VITALS: BP 151/95; PULSE 72; RESP 16; O2SAT 97
== END 2022-01-02 02:40 | disposition home or self-care (01) ==
PROVIDERS: Emergency Provider Nurse Practitioner Family
DX: S96.911A Strain of unspecified muscle and tendon at ankle and foot level, right foot, initial encounter (principal); F17.210 Nicotine dependence, cigarettes, uncomplicated; X58.XXXA Exposure to other specified factors, initial encounter
CPT/HCPCS: 73630; 99283

== ENCOUNTER 2022-01-27 17:52 | Emergency (ER) | payer MEDICAID, SELFPAY ==
--- NOTE | 2022-01-27 18:09 | XRR_ITS ---
PROCEDURE INFORMATION: Exam: XR Right Knee Exam date and time: 01/27/2022 6:35 PM Age: 26 years old Clinical indication: Pain; Knee; Right; Additional info: Knee pain TECHNIQUE: Imaging protocol: Radiologic exam of the Right knee. Views: 3 views. COMPARISON: CR (LOW EXM, ) 12/16/2021 11:26 AM FINDINGS: Bones/joints: Small tug lesion at the medial/proximal metaphysis of the right tibia. There is a fabella in the soft tissues posterior to the knee. No acute fracture. No dislocation. Normal bone mineralization. No joint effusion. Joint spaces are maintained. Soft tissues: No soft tissue swelling. No radiopaque foreign body. XR/XR knee RT 3V* [id number] IMPRESSION: 1. No acute fracture of the right knee. Followup imaging recommended in 7-14 days if clinical concern for fracture persists. 2. Incidental/nonacute findings are listed in the report.
[2022-01-27 18:25] VITALS: BP 155/75; PULSE 72; RESP 14; TEMP 36.8; O2SAT 98; BMI 39.0
--- NOTE | 2022-01-28 15:42 | ED_ITS ---
HPI - Extremity Problem General: Chief complaint: Extremity Injury, Lower Stated complaint: Right knee locking up Time Seen by Provider: 01/27/22 19:24 Source: patient History of Present Illness: 26 year old male gentleman with a history of greater than one month of right knee pain with locking sensation. He has been seen for this before. He was given a ?shot? in [facility] with some transient relief of only a couple of days. He endorses swelling to the area, and continued locking as above. MD Complaint: joint pain Onset (ago): week(s) Pain Consistency: intermittent Location: right Quality: aching Radiation: none Associated symptoms: Deny chest pain or fever(s) Review of Systems Const: Denies: fever(s) Card: Denies: chest pain Resp: Denies: dyspnea GI: Denies: vomiting PFSH ED PFSH: Medical History No pertinent family history Psychiatric care Surgical History No pertinent past surgical history Social History Smoking and tobacco status: current every day smoker Alcohol intake: never Physical Exam Const: COMMON NORMALS: no acute distress GENERAL APPEARANCE: cooperative HENMT: COMMON NORMALS: normocephalic and Normal external nose present HEAD & SCALP: normocephalic FACE & SINUS: normal facial exam and face symmetric NOSE: Normal external nose present Eye: COMMON NORMALS: Equal, round and reactive pupils present and EOMs intact bilaterally PUPIL: Yes Equal, round and reactive pupils present Neck/C-Spine: GENERAL: Yes trachea midline Chest: CHEST: Yes Symmetrical chest wall rise Resp: COMMON NORMALS: normal respiratory effort, No retractions, No use of accessory muscles and clear to auscultation bilaterally AUSCULTATION: clear to auscultation bilaterally Cardio: COMMON NORMALS: regular rate and regular rhythm RATE: regular rate RHYTHM: regular rhythm GI: COMMON NORMALS: Normal to inspection, nondistended, normoactive bowel sounds present Extremity: COMMON NORMALS: no pedal edema NARRATIVE EXTREMITY EXAM: Exam of the right lower extremity reveals no knee heat or effusion. no deformity. full extension. 110 flextion. ttp in medial joint line. Neuro: DL COMA SCALE: document GCS findings [place] coma scale eye opening: Spontaneous [place] coma scale verbal response: Orientated Dl coma scale motor response: Obey commands [place] coma scale total score: 15 SENSORY EXAM: Yes extremities (intact) Psych: COMMON NORMALS: speech normal SPEECH: Yes normal speech Skin: COMMON NORMALS: no rashes or lesions noted GENERAL SKIN EXAM: no rashes or lesions noted Course Vital Signs: Vital signs: Vital Signs Temperature 98.3 F 01/27/22 18:25 Pulse Rate 72 01/27/22 18:25 Respiratory Rate 14 01/27/22 18:25 Blood Pressure 155/75 01/27/22 18:25 Pulse Oximetry 98 01/27/22 18:25 Oxygen Delivery Me thod 01/27/22 18:25 MDM - Extremity (Nontraumatic) Medical Decision Making Patient with now subacute to chronic knee pain and no significant change in symptoms to bring him to the ER on Saturday night. his X-ray again is not impressive. He has no effusion on exam. No signs of infection. He'll be referred to outpatient orthopedics for continued evaluation if necessary. He is given anti inflammatories. Lab Data Radiology Impressions Knee X-Ray 01/27/22 18:09 IMPRESSION: 1. No acute fracture of the right knee. Followup imaging recommended in 7-14 days if clinical concern for fracture persists. 2. Incidental/nonacute findings are listed in the report. Discharge Plan Discharge Patient Disposition: Home Clinical Impression: Injury of knee Condition: Stable Prescriptions: Changed naproxen 500 mg tablet 500 mg PO Q12H PRN (Reason: pain) Qty: 20 0RF Discontinued ibuprofen 600 mg tablet 600 mg PO Q8H PRN (Reason: pain) Qty: 20 0RF No Action methocarbamol 750 mg tablet 750 mg PO Q8H Qty: 21 0RF ondansetron 4 mg film 4 mg PO DAILY PRN (Reason: nausea and vomiting) Qty: 10 0RF Discharge Orders: Discharge ED (Routine); Ordered 01/27/22 Ordered By: Keny Wharton Patient Instructions: Knee Pain (ED) Activity Restrictions/Additional Instructions: You will get a call from our disease case manager regarding an orthopedics appointment as an outpatient. Medication as directed. Coding Level of Care Code ED Roof Truss Detailer for Dereck Gordon
--- NOTE | 2022-01-29 11:38 | DCPLANNER ---
Addendum entered by Kate Lane 03/01/22 10:12: Patient had a follow up appointment scheduled with ortho - patient did attend appointment. Addendum entered by Kate Lane 02/01/22 09:28: Patient has a follow up appointment scheduled for Wednesday, February 09, 2022 at 7:[address] Anders at ortho. Clinic will call patient with appointment information. Original Note: shipping/receiving manager had message to schedule a follow up appointment for patient with ortho. shipping/receiving manager sent patients information to the front office staff at ortho. Patients information will be printed and reviewed. Clinic will call patient with appointment information.
== END 2022-01-27 19:50 | disposition home or self-care (01) ==
PROVIDERS: Emergency Provider Emergency Medicine
DX: S89.91XA Unspecified injury of right lower leg, initial encounter (principal); F17.210 Nicotine dependence, cigarettes, uncomplicated; X58.XXXA Exposure to other specified factors, initial encounter
CPT/HCPCS: 73562; 99283

== ENCOUNTER 2022-01-29 15:14 | Emergency (ER) | payer MEDICAID, SELFPAY ==
[2022-01-29 15:50] VITALS: BP 136/89; PULSE 110; RESP 16; TEMP 36.5; O2SAT 96
[2022-01-29] MEDS: ketorolac 30 mg/mL INJ IVP (16:46)
[2022-01-29] MEDS: promethazine 25 mg/mL SDV 1 mL IM (16:48)
[2022-01-29] MEDS: sodium chloride 0.9% 1,000 ML 999 ML IV (16:48)
--- NOTE | 2022-01-29 17:03 | ED_ITS ---
Documented by User: Manish Caputo DO 01/31/22 07:46 HPI - Headache General: Chief Complaint: Headache Stated Complaint: dehydration Time Seen by Provider: 01/29/22 16:16 Source: patient Mode of arrival: ambulatory History of Present Illness: 26-year-old male comes in complaining headache. He has had some vomiting and nausea little bit of diarrhea he states whenever he gets dehydrated he gets a headache he is complaining of a headache he is awake and alert oriented. He has not had any fever sweats chills denies any medic easy melena hematemesis coffee-ground emesis no cough or shortness of breath MD elicited complaint: headache Onset (ago): hour(s) Onset description: gradually Location: temporal Severity: mild Quality & Timing: throbbing Exacerbating factors: none Relieving factors: nothing Context: occurred with exertion/activity Associated symptoms: Deny chest pain, confusion, cough, diaphoresis, eye pain, eye redness, fever(s), lightheadedness, loss of vision, malaise, nausea, neck stiffness, numbness, paresthesias, photophobia, pre-syncope, rash, seizures, short of breath, sound sensitivity, syncope, vomiting or weakness Review of Systems Const: Denies: fever(s), chills, fatigue, malaise or diaphoresis ENMT: Denies: throat pain, ear or mastoid pain, nasal discharge or nasal congestion Card: Denies: chest pain, lightheadedness, syncope or pre-syncope Resp: Denies: dyspnea, productive cough or non-productive cough GI: Denies: abdominal pain, nausea or vomiting : Denies: flank pain, dysuria, urinary frequency or urinary urgency Skin/Breast: Denies: rash Neuro: Reports: headache(s); Denies: confusion PFSH ED PFSH: Medical History No pertinent family history Psychiatric care Surgical History No pertinent past surgical history Social History Smoking and tobacco status: current every day smoker Alcohol intake: never Physical Exam Const: COMMON NORMALS: no acute distress GENERAL APPEARANCE: cooperative and comfortable ORIENTATION/CONSCIOUSNESS: Yes awake, Yes oriented to person, Yes oriented to place and Yes oriented to time HENMT: COMMON NORMALS: normocephalic, atraumatic and hearing grossly normal bilaterally HEAD & SCALP: normocephalic and atraumatic Eye: DIRECT OPHTHALMOSCOPY: No photophobia Resp: COMMON NORMALS: normal respiratory effort, No retractions, No use of accessory muscles and clear to auscultation bilaterally AUSCULTATION: clear to auscultation bilaterally Cardio: COMMON NORMALS: regular rate, regular rhythm and No murmurs present (Cardio) RATE: regular rate RHYTHM: regular rhythm GI: COMMON NORMALS: Soft to palpation and No hepatosplenomegaly present AUSCULTATION: Yes normoactive bowel sounds PALPATION: Yes Soft to palpation, No Tenderness to palpation present (GI), No Guarding due to palpation present (GI) and Yes No hepatosplenomegaly present Extremity: COMMON NORMALS: normal to inspection, capillary refill normal, no clubbing, cyanosis or edema, no calf tenderness and no pedal edema Neuro: SENSORIUM/ORIENTATION: Yes oriented to person, Yes oriented to place and Yes oriented to time Skin: COMMON NORMALS: no rashes or lesions noted GENERAL SKIN EXAM: no rashes or lesions noted Course Vital Signs: Vital signs: Vital Signs Temperature 97.7 F 01/29/22 15:50 Pulse Rate 95 01/29/22 17:58 Respiratory Rate 18 01/29/22 17:58 Blood Pressure 118/74 01/29/22 17:58 Pulse Oximetry 99 01/29/22 17:58 Oxygen Delivery Me thod 01/29/22 17:41 MDM - Headache Medical Decision Making Care signed out to Dr. Ford at change of shift. See final notes for diagnosis and disposition. Discharge Plan Discharge Patient Disposition: Home Clinical Impression: Headache Condition: Stable Prescriptions: No Action lisinopril 10 mg tablet 10 mg PO DAILY ondansetron 4 mg tablet,disintegrating 4 mg PO Q6H PRN (Reason: nausea and vomiting) Qty: 14 0RF Discharge Orders: Discharge ED (Routine); Ordered 01/29/22 Ordered By: Mil Ford Discharge Diet: Advance as tolerated Discharge Activity: Resume usual activity Patient Instructions: Acute Headache (ED) Coding Level of Care Code ED Channel Marketing Coordinator for Chg Fwd Exam Comprehensive Documented by User: Mil Ford MD 01/29/22 17:58 HPI - Headache General: Chief Complaint: Headache Stated Complaint: dehydration Time Seen by Provider: 01/29/22 16:16 PFSH ED PFSH: Medical History No pertinent family history Psychiatric care Surgical History No pertinent past surgical history Social History Smoking and tobacco status: current every day smoker Alcohol intake: never Course Vital Signs: Vital signs: Vital Signs Temperature 97.7 F 01/29/22 15:50 Pulse Rate 95 01/29/22 17:58 Respiratory Rate 18 01/29/22 17:58 Blood Pressure 118/74 01/29/22 17:58 Pulse Oximetry 99 01/29/22 17:58 Oxygen Delivery Me thod 01/29/22 17:41 MDM - Headache Medical Decision Making Care signed out to Dr. Ford at change of shift. See final notes for diagnosis and disposition. Presents here with a headache I went and checked on him he states his headache is resolved he feels much improved likely migraine headache he has no signs of meningitis or subarachnoid hemorrhage he stable for discharge he is to follow-up with PCP and return if worsening he understands and agrees to plan. Discharge Plan Discharge Patient Disposition: Home Clinical Impression: Headache Condition: Stable Prescriptions: No Action lisinopril 10 mg tablet 10 mg PO DAILY ondansetron 4 mg tablet,disintegrating 4 mg PO Q6H PRN (Reason: nausea and vomiting) Qty: 14 0RF Discharge Orders: Discharge ED (Routine); Ordered 01/29/22 Ordered By: Mil Ford Discharge Diet: Advance as tolerated Discharge Activity: Resume usual activity Patient Instructions: Acute Headache (ED) Coding Level of Care Code ED Channel Marketing Coordinator for Chg Fwd Exam Comprehensive
[2022-01-29 17:41] VITALS: BP 118/74; PULSE 76; RESP 18; O2SAT 98
[2022-01-29 17:58] VITALS: BP 118/74; PULSE 95; RESP 18; O2SAT 99
== END 2022-01-29 18:00 | disposition home or self-care (01) ==
PROVIDERS: Emergency Provider Emergency Medicine
DX: R51.9 Headache, unspecified (principal); F17.210 Nicotine dependence, cigarettes, uncomplicated
CPT/HCPCS: 96361; 96372; 96374; 99284; J1885; J2550; J7030

== ENCOUNTER 2022-01-31 03:05 | Emergency (ER) | payer MEDICAID, SELFPAY ==
[2022-01-31 03:13] VITALS: BP 135/89; PULSE 90; RESP 16; TEMP 36.8; O2SAT 96; BMI 39.0
[2022-01-31 03:16] VITALS: PULSE 94; RESP 18; O2SAT 98
--- NOTE | 2022-01-31 03:16 | ED_ITS ---
HPI - Nausea/Vomiting/Diarrhea General: Chief complaint: Nausea/Vomiting/Diarrhea Stated complaint: n/v/d Time Seen by Provider: 01/31/22 03:08 Source: patient Mode of arrival: ambulatory Limitations: no limitations History of Present Illness: 26-year-old male who states that over the last day has been having nausea vomiting along with diarrhea. He states that he has had multiple episodes of vomiting he has had no known sick contacts. He denies any worsening proving factors denies any pain besides some mild cramping pain with vomiting. Associated nausea: Yes Associated symtoms: Reports nausea; Denies chest pain, dysuria or headache(s) Review of Systems Const: Reports: fever(s) and chills Eyes: Denies: blurry vision or eye discomfort ENMT: Denies: throat pain or dental pain Card: Denies: chest pain Resp: Denies: dyspnea GI: Reports: nausea, vomiting and diarrhea : Denies: dysuria Musc: Denies: neck pain or back pain Skin/Breast: Denies: rash Neuro: Denies: headache(s) Psych: Denies: depression Arnie/Lymph: Denies: easy bruising All/Imm: Denies: urticaria PFSH ED PFSH: Medical History No pertinent family history Psychiatric care Surgical History No pertinent past surgical history Social History Smoking and tobacco status: current every day smoker Alcohol intake: never Physical Exam Const: COMMON NORMALS: no acute distress, patient oriented x3 and healthy appearing HENMT: COMMON NORMALS: normocephalic and atraumatic HEAD & SCALP: normocephalic and atraumatic Eye: COMMON NORMALS: Equal, round and reactive pupils present and EOMs intact bilaterally PUPIL: Yes Equal, round and reactive pupils present Neck/C-Spine: COMMON NORMALS: full ROM and supple Chest: COMMONS NORMALS: normal inspection of the chest and normal palpation of entire chest wall Resp: COMMON NORMALS: normal respiratory effort, No retractions, No use of accessory muscles and clear to auscultation bilaterally AUSCULTATION: clear to auscultation bilaterally Cardio: COMMON NORMALS: regular rate, regular rhythm and No murmurs present (Cardio) RATE: regular rate RHYTHM: regular rhythm GI: COMMON NORMALS: Normal to inspection, nondistended, normoactive bowel sounds present, Soft to palpation, non-tender and no masses PALPATION: Yes Soft to palpation Extremity: COMMON NORMALS: normal to inspection and full ROM Neuro: COMMON NORMALS: patient oriented x3, moves all extremities and no focal motor deficits Psych: COMMON NORMALS: mental status grossly normal, Normal thought process present and cooperative THOUGHT PROCESS: Normal thought process present Skin: COMMON NORMALS: no rashes or lesions noted and no wounds GENERAL SKIN EXAM: no rashes or lesions noted Course Vital Signs: Vital signs: Vital Signs Temperature 98.3 F 01/31/22 03:13 Pulse Rate 94 01/31/22 03:16 Respiratory Rate 18 01/31/22 03:16 Blood Pressure 135/89 01/31/22 03:13 Pulse Oximetry 98 01/31/22 03:16 Oxygen Delivery Me thod 01/31/22 03:16 MDM - Nausea/Vomiting/Diarrhea Medical Decision Making Patient presents here with vomiting is likely viral in origin patient exam here is benign no abdominal tenderness blood work is normal he feels improved after Zofran he is stable for discharge he is follow-up PCP and return if worsening. Lab Data 01/31/22 03:20 01/31/22 03:20 Laboratory Results WBC 8.4 10^3/uL (4.0-10.0) 01/31/22 03:20 RBC 4.37 10^6/uL (4.1-5.3) 01/31/22 03:20 Hgb 13.1 g/dL (11.7-16.6) 01/31/22 03:20 Hct 40.2 % (42.0-52.0) L 01/31/22 03:20 MCV 92.0 fl (80-94) 01/31/22 03:20 MCH 30.0 pg (28.0-34.0) 01/31/22 03:20 MCHC 32.6 g/dL (30.0-36.0) 01/31/22 03:20 RDW 13.2 % (12.1-15.1) 01/31/22 03:20 Plt Count 197 10^3/cmm (130-400) 01/31/22 03:20 MPV 10.9 fL (7.4-10.4) H 01/31/22 03:20 Neut % (Auto) 61.7 % 01/31/22 03:20 Lymph % (Auto) 22.0 % 01/31/22 03:20 [place] % (Auto) 15.4 % 01/31/22 03:20 Eos % (Auto) 0.6 % 01/31/22 03:20 Baso % (Auto) 0.2 % 01/31/22 03:20 Neut # (Auto) 5.15 10^3/uL (1.8-7.7) 01/31/22 03:20 Lymph # (Auto) 1.8 10^3/uL (0.8-4.8) 01/31/22 03:20 [place] # (Auto) 1.3 10^3/uL (0.2-0.9) H 01/31/22 03:20 Eos # (Auto) 0.1 10^3/uL (0.0-0.8) 01/31/22 03:20 Baso # (Auto) 0.0 10^3/uL (0.0-0.1) 01/31/22 03:20 Nucleated RBC % (auto) 0 % 01/31/22 03:20 Nucleated RBCs # 0.0 /100WBC 01/31/22 03:20 Sodium 138 mmol/L (136-145) 01/31/22 03:20 Potassium 3.8 mmol/L (3.5-5.1) 01/31/22 03:20 Chloride 104 mmol/L (98-107) 01/31/22 03:20 Carbon Dioxide 24 mmol/L (22-29) 01/31/22 03:20 Anion Gap 13.8 (5-19) 01/31/22 03:20 BUN 11 mg/dL (6-20) 01/31/22 03:20 Creatinine 0.9 mg/dL (0.7-1.2) 01/31/22 03:20 GFR Calculation 101.2 mL/min (90-130) 01/31/22 03:20 Glucose 109 mg/dL (65-115) 01/31/22 03:20 Calculated Osmolality 286 mOsm/kg (285-295) 01/31/22 03:20 Calcium 9.3 mg/dL (8.5-10.5) 01/31/22 03:20 Total Bilirubin 0.4 mg/dL (0.15-1.2) 01/31/22 03:20 AST 15 U/L (0-40) 01/31/22 03:20 ALT 21 U/L (0-41) 01/31/22 03:20 Alkaline Phosphatase 112 U/L (40-130) 01/31/22 03:20 Total Protein 6.9 g/dL (6.6-8.7) 01/31/22 03:20 Albumin 3.8 g/dL (3.5-5.2) 01/31/22 03:20 Globulin 3.1 g/dL (1.3-4.6) 01/31/22 03:20 Lipase 15 U/L (13-60) 01/31/22 03:20 Influenza Type A Ag negative (Negative) 01/31/22 03:22 Influenza Type B Ag negative (Negative) 01/31/22 03:22 Discharge Plan Discharge Patient Disposition: Home Clinical Impression: Vomiting Condition: Stable Prescriptions: New ondansetron 4 mg tablet,disintegrating 4 mg PO Q6H PRN (Reason: nausea and vomiting) Qty: 14 0RF No Action lisinopril 10 mg tablet 10 mg PO DAILY Discharge Orders: Discharge ED (Routine); Ordered 01/31/22 Ordered By: Mil Ford Discharge Diet: Advance as tolerated Discharge Activity: Resume usual activity Patient Instructions: Acute Nausea and Vomiting (ED) Coding Level of Care Code ED Clam Dredge Boat Captain for Dereck Fwd Exam Comprehensive
[2022-01-31 03:24] LABS: Basophils % 0.2 %; Eosinophils # 0.1 10^3/uL (0.0-0.8); Eosinophils % 0.6 %; Hematocrit 40.2 % (42.0-52.0); Hemoglobin 13.1 g/dL (11.7-16.6); Lymphocytes # 1.8 10^3/uL (0.8-4.8); Mean Corpuscular HGB Conc 32.6 g/dL (30.0-36.0); Mean Platelet Volume 10.9 fL (7.4-10.4); Monocytes # 1.3 10^3/uL (0.2-0.9); Monocytes % 15.4 %; Neutrophils # 5.15 10^3/uL (1.8-7.7); Neutrophils % 61.7 %; Nucleated Red Blood Cells % 0 %; Platelet Count 197 10^3/cmm (130-400); Red Blood Count 4.37 10^6/uL (4.1-5.3); Red Cell Distribution Width 13.2 % (12.1-15.1); White Blood Count 8.4 10^3/uL (4.0-10.0)
[2022-01-31] MEDS: sodium chloride 0.9% 1,000 ML 999 ML IV (03:29)
[2022-01-31] MEDS: acetaminophen 325 mg Tablet 650 MG PO (03:29)
[2022-01-31] MEDS: ondansetron 2 mg/ML SDV 2 mL 4 MG IVP (03:29)
[2022-01-31 04:12] LABS: Alanine Aminotransferase 21 U/L (0-41); Albumin Level 3.8 g/dL (3.5-5.2); Alkaline Phosphatase 112 U/L (40-130); Anion Gap 13.8 (5-19); Aspartate Amino Transferase 15 U/L (0-40); Blood Urea Nitrogen 11 mg/dL (6-20); Calcium 9.3 mg/dL (8.5-10.5); Carbon Dioxide 24 mmol/L (22-29); Chloride 104 mmol/L (98-107); Globulin 3.1 g/dL (1.3-4.6); Glomerular Filtration Rate 101.2 mL/min (90-130); Glucose 109 mg/dL (65-115); Lipase 15 U/L (13-60); Osmolality Calculated 286 mOsm/kg (285-295); Potassium 3.8 mmol/L (3.5-5.1); Sodium 138 mmol/L (136-145); Total Bilirubin 0.4 mg/dL (0.15-1.2); Total Protein 6.9 g/dL (6.6-8.7)
[2022-01-31 04:21] LABS: Influenza A by IFA negative (Negative); Influenza B by IFA negative (Negative)
[2022-01-31 04:32] VITALS: BP 123/63; PULSE 94; RESP 18; O2SAT 98
[2022-01-31 04:42] VITALS: TEMP 36.8
== END 2022-01-31 04:43 | disposition home or self-care (01) ==
PROVIDERS: Emergency Provider Emergency Medicine
DX: R11.11 Vomiting without nausea (principal); F17.210 Nicotine dependence, cigarettes, uncomplicated
CPT/HCPCS: 80053; 83690; 85025; 87804; 96361; 96374; 99284; J2405; J7030

== ENCOUNTER 2022-02-01 12:44 | Emergency (ER) | payer MEDICAID, SELFPAY ==
[2022-02-01 13:03] VITALS: PULSE 125; RESP 16; TEMP 38.4; O2SAT 96
[2022-02-01 13:37] LABS: SARS Covid-2 Antigen negative (Negative)
[2022-02-01 13:43] LABS: Influenza A by IFA Negative (Negative); Influenza B by IFA Negative (Negative)
[2022-02-01 13:50] LABS: Rapid Strep A Test Negative (Negative)
--- NOTE | 2022-02-01 14:02 | XRR_ITS ---
PROCEDURE INFORMATION: Exam: XR Chest Exam date and time: 02/01/2022 2:10 PM Age: 26 years old Clinical indication: Shortness of breath; Additional info: Feve cough TECHNIQUE: Imaging protocol: Radiologic exam of the chest. Views: 2 views. COMPARISON: CR (CHEST, ) 12/02/2021 8:44 PM FINDINGS: Lungs: Left lower lobe interstitial density is seen No consolidation. Pleural spaces: Unremarkable. No pleural effusion. No pneumothorax. Heart/Mediastinum: Unremarkable. No cardiomegaly. Bones/joints: Unremarkable. XR/XR chest 2V* [id number] IMPRESSION: 1. Left lower lobe interstitial density 2. Otherwise negative examination
[2022-02-01] MEDS: sodium chloride 0.9% 1,000 ML 999 ML IV (14:29)
[2022-02-01] MEDS: ibuprofen 800 mg tablet PO (14:29)
[2022-02-01 14:46] LABS: Basophils % 0.4 %; Hematocrit 40.1 % (42.0-52.0); Hemoglobin 13.2 g/dL (11.7-16.6); Lymphocytes # 0.9 10^3/uL (0.8-4.8); Lymphocytes % 10.9 %; Mean Corpuscular HGB Conc 32.9 g/dL (30.0-36.0); Mean Corpuscular Hemoglobin 29.8 pg (28.0-34.0); Mean Corpuscular Volume 90.5 fl (80-94); Monocytes % 12.1 %; Neutrophils # 6.48 10^3/uL (1.8-7.7); Neutrophils % 76.2 %; Nucleated Red Blood Cells % 0 %; Platelet Count 178 10^3/cmm (130-400); Red Blood Count 4.43 10^6/uL (4.1-5.3); Red Cell Distribution Width 13.2 % (12.1-15.1); White Blood Count 8.5 10^3/uL (4.0-10.0)
[2022-02-01 15:20] LABS: Alanine Aminotransferase 15 U/L (0-41); Albumin Level 3.9 g/dL (3.5-5.2); Alkaline Phosphatase 92 U/L (40-130); Anion Gap 16.8 (5-19); Aspartate Amino Transferase 12 U/L (0-40); Blood Urea Nitrogen 11 mg/dL (6-20); Carbon Dioxide 25 mmol/L (22-29); Chloride 96 mmol/L (98-107); Creatinine Clr Calc Pharmacy 125.5325; Globulin 3.1 g/dL (1.3-4.6); Glomerular Filtration Rate 72.6 mL/min (90-130); Glucose 108 mg/dL (65-115); Osmolality Calculated 278 mOsm/kg (285-295); Potassium 3.8 mmol/L (3.5-5.1); Sodium 134 mmol/L (136-145); Total Bilirubin 0.6 mg/dL (0.15-1.2)
[2022-02-01 15:29] VITALS: TEMP 37.9
[2022-02-01] MEDS: predniSONE 20 mg Tablet PO (15:45)
[2022-02-01] MEDS: doxycycline 100 mg Tablet PO (15:45)
[2022-02-01] MEDS: albuterol 8 gm MDI 2 PUFF INHALATION (15:45)
[2022-02-01 15:46] VITALS: PULSE 87; RESP 16; O2SAT 95
--- NOTE | 2022-02-01 21:59 | W.ED.FEVER ---
HPI - Fever General: Chief Complaint: Fever Stated Complaint: flu like symptoms Time Seen by Provider: 02/01/22 13:01 History of Present Illness: 26 yo male patient presents to the ER with cough, congestion and fever x 3 days. Pt states he is eating and drinking ok and denies any chest pain or SOB. Pt states it artis hihs chest when he coughs. Pt denies any other complaints. Pt with hx of HTN Associated symptoms: Reports chills; Deny chest pain, diarrhea, dysuria, headache(s), nausea or vomiting Review of Systems Const: Reports: fever(s) and chills Eyes: Denies: blurry vision or eye discomfort ENMT: Denies: throat pain, uvular edema or dental pain Card: Denies: chest pain Resp: Reports: non-productive cough; Denies: dyspnea GI: Denies: nausea, vomiting or diarrhea : Denies: dysuria Musc: Denies: neck pain or back pain Skin/Breast: Denies: rash Neuro: Denies: headache(s) Psych: Denies: depression Arnie/Lymph: Denies: easy bruising All/Imm: Denies: urticaria PFSH ED PFSH: Medical History No pertinent family history Psychiatric care Surgical History No pertinent past surgical history Social History Smoking and tobacco status: current every day smoker Alcohol intake: never Physical Exam Const: COMMON NORMALS: no acute distress, patient oriented x3, healthy appearing, alert and well nourished GENERAL APPEARANCE: cooperative, comfortable, well kempt and well developed; not ill appearing ORIENTATION/CONSCIOUSNESS: Yes awake, Yes oriented to person, Yes oriented to place and Yes oriented to time HENMT: COMMON NORMALS: normocephalic, atraumatic, hearing grossly normal bilaterally, external ears normal, EAC's normal, TM's normal bilaterally, Normal external nose present, Normal nasal mucous membranes and turbinates present and moist oral mucous membranes HEAD & SCALP: normal to inspection, normocephalic and atraumatic FACE & SINUS: normal facial exam, sinuses nontender and face symmetric NOSE: Normal external nose present, Normal nares present, Normal nasal mucous membranes and turbinates present, No nasal discharge present and Abnormal external nose present EXTERNAL EAR: Yes external ears normal and Yes mastoids normal EXTERNAL AUDITORY CANAL: EAC's normal TYMPANIC MEMBRANE: TM's normal bilaterally MOUTH: Normal oral and palatal mucosa present, lip normal, tongue normal and Normal salivary glands and ducts present THROAT: posterior oropharynx normal, tonsils normal and uvula midline; no uvular edema Eye: COMMON NORMALS: Equal, round and reactive pupils present, EOMs intact bilaterally, conjunctivae normal, no scleral icterus and no papilledema GENERAL EYE: appearance normal, both eyes and all related structures EYELID: eyelids normal CONJUNCTIVA: Yes conjunctivae normal SCLERA: sclerae normal CORNEA: Yes corneas normal PUPIL: Yes Equal, round and reactive pupils present DIRECT OPHTHALMOSCOPY: Yes no papilledema Neck/C-Spine: COMMON NORMALS: full ROM, no lymphadenopathy, supple, no meningeal signs, no JVD and Thyroid normal GENERAL: Yes normal visual inspection and Yes trachea midline THYROID: Thyroid normal CERVICAL SPINE: Yes cervical ROM normal Lymph: LYMPHATIC: no lymphadenopathy noted and no lymphedema noted Chest: COMMONS NORMALS: normal inspection of the chest and normal palpation of entire chest wall Resp: COMMON NORMALS: normal respiratory effort, No retractions, No use of accessory muscles and clear to auscultation bilaterally EFFORT & INSPECTION: Yes able to speak in complete sentences and Yes symmetric chest movement AUSCULTATION: clear to auscultation bilaterally Cardio: COMMON NORMALS: no JVD, regular rate and regular rhythm RATE: regular rate RHYTHM: regular rhythm GI: COMMON NORMALS: Normal to inspection, nondistended, normoactive bowel sounds present, Soft to palpation, non-tender, No hepatosplenomegaly present, no masses and no bruits INSPECTION: Yes normal to inspection AUSCULTATION: Yes normoactive bowel sounds PALPATION: Yes Soft to palpation and Yes No hepatosplenomegaly present PERCUSSION: normal to percussion RECTAL EXAM: Yes deferred : COMMON NORMALS: Yes no CVA tenderness BLADDER/KIDNEY EXAM: Yes no CVA tenderness Back/Pelvis: COMMON NORMALS: no CVA tenderness, thoracic and lumbar spine normal to inspection, no thoracic nor lumbar tenderness, thoraco-lumbar ROM normal and straight leg raise negative bilaterally THORACIC SPINE/UPPER BACK: Yes normal to inspection LUMBAR SPINE/LOWER BACK: Yes normal to inspection Extremity: COMMON NORMALS: normal to inspection, full ROM and capillary refill normal GENERAL: Yes normal exam except as noted Neuro: COMMON NORMALS: patient oriented x3, CN's II-XII intact bilaterally, moves all extremities, no focal motor deficits, no sensory deficits noted, deep tendon reflexes 2+ bilaterally and gait normal SENSORIUM/ORIENTATION: Yes alert, Yes oriented to person, Yes oriented to place and Yes oriented to time MENINGEAL SIGNS: Yes no meningeal signs CRANIAL NERVES: Yes CN normal except as noted SPEECH: speech normal GAIT: Yes Normal gait present SENSORY EXAM: Yes extremities MOTOR EXAM: 5/5 motor strength present throughout Psych: COMMON NORMALS: mental status grossly normal, Normal thought process present, cooperative, normal affect, speech normal, activity/motor behavior normal, denies hallucinations, denies homicidal ideation and denies suicidal ideation APPEARANCE: Yes grossly normal and Yes well kempt ATTITUDE: Yes calm ACTIVITY/MOTOR BEHAVIOR: Yes appropriate eye contact SPEECH: Yes normal speech THOUGHT PROCESS: Normal thought process present THOUGHT CONTENT: Yes Normal thought content present ATTENTION/CONCENTRATION: Yes attention grossly intact MEMORY/COGNITION: Yes memory grossly intact INSIGHT: Good insight present (Psych) JUDGEMENT: Good judgement present (Psych) Skin: COMMON NORMALS: no rashes or lesions noted, no wounds, turgor normal, no jaundice, no petechiae and no mottling GENERAL SKIN EXAM: no rashes or lesions noted and turgor normal Course Vital Signs: Vital signs: Vital Signs Temperature 100.2 F H 02/01/22 15:29 Pulse Rate 87 02/01/22 15:46 Respiratory Rate 16 02/01/22 15:46 Pulse Oximetry 95 02/01/22 15:46 Oxygen Delivery Ks thod 02/01/22 15:46 MDM - Fever Medical Decision Making Patient is well appearing non toxic and in no acute distress. 26 yo male patient presents to the ER with cough, congestion and fever x 3 days. Pt states he is eating and drinking ok and denies any chest pain or SOB. Pt states it artis hihs chest when he coughs. Pt denies any other complaints. Pt with hx of HTN Pt is negative for influenza and covid but chest xray does reveal any area concerning for pneumonia. I will start on antibiotics inhaler and steroids. Pt VSS. Pt was given motrin and fever had good clinical responce. Pt has no evidence of hypoxemia or meningeal irritation Lab Data 02/01/22 14:25 02/01/22 14:25 Radiology Impressions Chest X-Ray 02/01/22 14:02 IMPRESSION: 1. Left lower lobe interstitial density 2. Otherwise negative examination Laboratory Results WBC 8.5 10^3/uL (4.0-10.0) 02/01/22 14:25 RBC 4.43 10^6/uL (4.1-5.3) 02/01/22 14:25 Hgb 13.2 g/dL (11.7-16.6) 02/01/22 14:25 Hct 40.1 % (42.0-52.0) L 02/01/22 14:25 MCV 90.5 fl (80-94) 02/01/22 14:25 MCH 29.8 pg (28.0-34.0) 02/01/22 14:25 MCHC 32.9 g/dL (30.0-36.0) 02/01/22 14:25 RDW 13.2 % (12.1-15.1) 02/01/22 14:25 Plt Count 178 10^3/cmm (130-400) 02/01/22 14:25 MPV 11.0 fL (7.4-10.4) H 02/01/22 14:25 Neut % (Auto) 76.2 % 02/01/22 14:25 Lymph % (Auto) 10.9 % 02/01/22 14:25 [place] % (Auto) 12.1 % 02/01/22 14:25 Eos % (Auto) 0.0 % 02/01/22 14:25 Baso % (Auto) 0.4 % 02/01/22 14:25 Neut # (Auto) 6.48 10^3/uL (1.8-7.7) 02/01/22 14:25 Lymph # (Auto) 0.9 10^3/uL (0.8-4.8) 02/01/22 14:25 [place] # (Auto) 1.0 10^3/uL (0.2-0.9) H 02/01/22 14:25 Eos # (Auto) 0.0 10^3/uL (0.0-0.8) 02/01/22 14:25 Baso # (Auto) 0.0 10^3/uL (0.0-0.1) 02/01/22 14:25 Nucleated RBC % (auto) 0 % 02/01/22 14:25 Nucleated RBCs # 0.0 /100WBC 02/01/22 14:25 Sodium 134 mmol/L (136-145) L 02/01/22 14:25 Potassium 3.8 mmol/L (3.5-5.1) 02/01/22 14:25 Chloride 96 mmol/L (98-107) L 02/01/22 14:25 Carbon Dioxide 25 mmol/L (22-29) 02/01/22 14:25 Anion Gap 16.8 (5-19) 02/01/22 14:25 BUN 11 mg/dL (6-20) 02/01/22 14:25 Creatinine 1.2 mg/dL (0.7-1.2) 02/01/22 14:25 GFR Calculation 72.6 mL/min (90-130) L 02/01/22 14:25 Glucose 108 mg/dL (65-115) 02/01/22 14:25 Calculated Osmolality 278 mOsm/kg (285-295) L 02/01/22 14:25 Calcium 9.0 mg/dL (8.5-10.5) 02/01/22 14:25 Total Bilirubin 0.6 mg/dL (0.15-1.2) 02/01/22 14:25 AST 12 U/L (0-40) 02/01/22 14:25 ALT 15 U/L (0-41) 02/01/22 14:25 Alkaline Phosphatase 92 U/L (40-130) 02/01/22 14:25 Total Protein 7.0 g/dL (6.6-8.7) 02/01/22 14:25 Albumin 3.9 g/dL (3.5-5.2) 02/01/22 14:25 Globulin 3.1 g/dL (1.3-4.6) 02/01/22 14:25 Influenza Type A Ag Negative (Negative) 02/01/22 13:08 Influenza Type B Ag Negative (Negative) 02/01/22 13:08 SARS-CoV-2 Ag (Rapid) negative (Negative) 02/01/22 13:08 Group A Strep Rapid Negative (Negative) 02/01/22 13:08 Discharge Plan Discharge Patient Disposition: Home Clinical Impression: Pneumonia Condition: Stable Prescriptions: New prednisone 20 mg tablet 20 mg PO BID 5 Days Qty: 10 0RF doxycycline hyclate 100 mg capsule 100 mg PO BID 10 Days Qty: 20 0RF No Action lisinopril 10 mg tablet 10 mg PO DAILY ondansetron 4 mg tablet,disintegrating 4 mg PO Q6H PRN (Reason: nausea and vomiting) Qty: 14 0RF Discharge Orders: Discharge ED (Routine); Ordered 02/01/22 Ordered By: Sahra James Discharge Diet: Advance as tolerated Discharge Activity: Resume usual activity Patient Instructions: Opioid Safety, Pain Management Activity Restrictions/Additional Instructions: Return to ER with any worsening of symptoms Please take meds as directed Follow up with PCP Coding Level of Care Code ED Nurse Gynecology for Dereck Gordon
== END 2022-02-01 15:47 | disposition home or self-care (01) ==
PROVIDERS: Emergency Provider Registered Nurse
DX: J18.9 Pneumonia, unspecified organism (principal); Z20.822 Contact with and (suspected) exposure to COVID-19; F17.210 Nicotine dependence, cigarettes, uncomplicated
CPT/HCPCS: 71046; 80053; 85025; 87081; 87426; 87804; 87880; 94640; 96360; 99284; J3535; J7030; J7512

== ENCOUNTER → 2022-02-09 07:28 | Outpatient (BNVA) | payer MEDICAID, SELFPAY | PROVIDERS: Visit Provider Student in an Organized Health Care Education/Training Program | DX: M25.561 Pain in right knee (principal) | CPT/HCPCS: 73560; 73565; 99203 ==